=== PATIENT | male | born 1970 | race African-American/Black ===

== ENCOUNTER 2017-04-14 08:11 | Inpatient (IN) | payer MEDICAID ==
--- NOTE | ~2017-04-14 | EKG ---
PATIENT: THANH SAHU UNIT #: [id number] Ventricular Rate: 118 BPM Atrial Rate: 129 BPM QRS Duration: 86 ms Q-T Interval: 332 ms QTC Calculation(Bezet): 465 ms Calculated R [place]: 21 degrees Calculated T [place]: 76 degrees Diagnosis Line: Atrial fibrillation with rapid ventricular Diagnosis Line: response with premature ventricular or aberrantly Diagnosis Line: conducted complexes Diagnosis Line: Poor R wave progression questionable lead position Diagnosis Line: or body habitus Diagnosis Line: Nonspecific ST and T wave abnormality Diagnosis Line: Abnormal ECG Diagnosis Line: When compared with ECG of 14-APR-2017 09:40, Diagnosis Line: (unconfirmed) Diagnosis Line: Questionable change in initial forces of Lateral Diagnosis Line: leads Diagnosis Line: Nonspecific T wave abnormality, worse in Inferior Diagnosis Line: leads Diagnosis Line: Nonspecific T wave abnormality, worse in Lateral Diagnosis Line: leads Diagnosis Line: Confirmed by CIPRIANO ABRAHAM MD ([id number]) on Diagnosis Line: 04/17/2017 9:52:21 AM INTERPRETING WILBER LEE
--- NOTE | ~2017-04-14 | OR ---
Unit #: [id number] #: [id number] Patient: THANH SAHU [id number] [facility] [address] [place], [place] [address] [id number] MR#: [id number] NAME: THANH SAHU ROOM: [facility] Date of Procedure: 04/14/2017 Admission Date: 04/14/2017 Surgeon: Geremias Bueno M.D. : 1970 Attending Physician: Geremias Bueno M.D. Referring Physician: Geremias Bueno M.D. Primary Care Physician: Generic Doctor Not In System OPERATIVE REPORT PROCEDURE PERFORMED 1. Right and left heart catheterization with selective coronary arteriography and left ventriculography. 2. Right ipsilateral iliofemoral arteriogram followed by deployment of 6-Swedish Angio-Seal closure device. CLINICAL SUMMARY Mr. Sahu is a 46-year-old gentleman with a longstanding history of known severe cardiomyopathy with an ejection fraction in the 15% range. He has declined having defibrillator placement on multiple occasions, because he is waiting for "stem-cell research to provide him with new heart muscle." The patient recently developed extremely painful hemorrhoids requiring surgical intervention. I have the surgery and anesthesiology on hearing he had such a severe cardiomyopathy that has never been worked up, declined to operate on him until his heart had been more fully evaluated and he perhaps has had defibrillator placement. The patient been adequately asked and was agreeable to undergo a cardiac cath to evaluate his cardiac anatomy and physiology and got subsequent therapy. Risks, benefits, and alternatives of cardiac cath were discussed and the patient was agreeable to proceed. A time-out was performed. Conscious sedation was administered in the form of fentanyl, Versed, and diphenhydramine. The patient tolerated the procedure relatively well and there were no acute complications. DESCRIPTION OF PROCEDURE The right groin was prepped and draped in usual sterile fashion. 2% Xylocaine local anesthetic was administered and a 6-Swedish sheath placed in the right femoral artery and 5-Swedish sheath in the right femoral vein with Seldinger technique. An initial attempt was made to obtain right heart hemodynamics, with a 5-Swedish multipurpose catheter over a Wholey wire; however, it turned out the patient has a very enlarged right atrium and right ventricle and if proved impossible to manipulate this into the cavity. He was therefore exchanged for a 6-Swedish thermodilution Channelview-Patti catheter and still with a great deal of manipulation and a 0.025 guidewire of the catheter was eventually manipulated into the pulmonary artery. One thermodilution cardiac output was performed before all other thermodilution indicated time of contrast bolus was excessively long and output was not recorded. Unit #: [id number] #: [id number] Patient: THANH SAHU Venkatesh cardiac outputs were inaccurate, oxygen saturation samples were obtained from right atrium, pulmonary artery, AO and pulmonary capillary wedge position, but readings from the lab despite repeating made no sense at all. HEMODYNAMIC DATA Right heart hemodynamics: Right atrial mean 25 to 28 mmHg. Pulmonary artery 50/38 mmHg. Pulmonary artery mean 42 mmHg. Pulmonary capillary wedge pressure mean 33 mmHg. Single thermodilution cardiac output 3.1 L/minute with cardiac index 1.2 L/minute/m2. Left heart hemodynamics: LV 110/25 to 30 mmHg. AO 108/87 mmHg with a mean of 97 mmHg. CORONARY ARTERIOGRAPHY Left main: The left main arose from the left sinus of Valsalva. There was a large caliber vessel that bifurcated into the left anterior descending and left circumflex. The left main was entirely within normal limits. Left anterior descending: The LAD with a large caliber vessel that coursed completely around the tip of the apex. It gave off several small and moderate size diagonal branches. The entire LAD system was completely within normal limits. Left circumflex: The left circumflex was a large, dominant vessel. The entire circumflex system was completely within normal limits. Right coronary artery: The RCA was a nondominant vessel that had an aberrant origin from the anterior portion of the right sinus of Valsalva (cannulated with a AL1 catheter). The entire RCA system was within normal limits. LEFT VENTRICULOGRAPHY Left ventriculography demonstrated severe LV cavity dilatation with markedly severe global LV hypokinesis. The overall estimated ejection fraction was 10% to 15%. There was no gradient across the aortic valve on pullback. CONCLUSIONS 1. Markedly severe nonischemic, dilated cardiomyopathy with left ventricular ejection fraction 10% to 15%. 2. Moderate pulmonary hypertension. 3. Significantly reduced cardiac index. 4. Completely normal coronary arteries. RECOMMENDATIONS The patient will be admitted to the hospital, where he has already been started on a dobutamine infusion in the laborer stores of 5 mcg/kg/minute at the conclusion of the procedure. He will also be aggressively diuresed with Bumex drip, initially 2 mg/hour for the first 6 hours and then 1 mg/hour. We will continue with spironolactone 50 mg a day and potassium supplements as needed. The patient will also be continued on his Entresto 49/51 mg p.o. b.i.d. His carvedilol will be restarted once he is off the dobutamine infusion. We will carefully follow I's and O's. Results have been discussed with the patient and his daughter in the laborer stores. Once he Unit #: [id number] #: [id number] Patient: THANH SAHU is more medically optimize for his acute on chronic systolic and diastolic CHF, we will discuss transfer to [facility] for automatic implantable cardioverter-defibrillator placement. Dictated by... Geremias Bueno M.D. CP/saol TD: 04/15/2017 05:38 JOB #: [id number] OPERATIVE REPORT Page 1 of 1 X Geremias Bueno MD X PROCEDURE OPERATIVE NOTE
--- NOTE | ~2017-04-14 | EKG ---
PATIENT: THANH SAHU UNIT #: [id number] Ventricular Rate: 120 BPM Atrial Rate: 120 BPM P-R Interval: 198 ms QRS Duration: 82 ms Q-T Interval: 322 ms QTC Calculation(Bezet): 455 ms P [place]: 64 degrees Calculated R [place]: 15 degrees Calculated T [place]: 57 degrees Diagnosis Line: Atrial fibrillation with Premature ventricular Diagnosis Line: complexes and Fusion complexes Diagnosis Line: Poor R wave progression questionable lead position Diagnosis Line: or body habitus Diagnosis Line: Abnormal ECG Diagnosis Line: No previous ECGs available Diagnosis Line: Confirmed by CIPRIANO ABRAHAM MD ([id number]) on Diagnosis Line: 04/17/2017 9:47:55 AM INTERPRETING MD: ROSA
[~2017-04-14 08:11] MED LIST: COREG; ENTRESTO 24 MG1 EACH; LASIX; LIDOCREAM5 GM TOP
[2017-04-14 09:01] LABS: INR 1.1; PARTIAL THROMBOPLASTIN TIME 25.3 SECONDS (23.5-31.3); PROTHROMBIN TIME (PATIENT) 11.9 SECONDS (9.6-11.5)
[2017-04-14 09:03] LABS: BUN/CREATININE RATIO 15.83; CALCIUM SERUM 9.1 mg/dL (8.4-10.2); CREATININE SERUM 1.2 mg/dL (0.6-1.4); GLOM FILT RATE Estimated 84.8 mL/min (>60)
[2017-04-14 09:14] LABS: HEMOGLOBIN 15.7 gm/dL (13.0-16.0); MEAN CORPUSCULAR HEMOGLOBIN 30.2 PG (28-34); MEAN CORPUSCULAR HGB CONC 32.1 g/dL (30-36); MEAN PLATELET VOLUME 10.3 FL (6.5-11.5); RED BLOOD COUNT 5.21 X10e (3.90-5.60); RED CELL DISTRIBUTION WIDTH 15.1 % (11.0-15.5); WHITE BLOOD COUNT 7.3 X10e3 (4.0-10.5)
[2017-04-14] MEDS ORDERED: DIGOX125 MCG PO (09:25)
[2017-04-14] MEDS ORDERED: ZYLOPRIM100 MG DOB (09:25)
[2017-04-14] MEDS ORDERED: COREG12.5 MG PO (09:25)
[2017-04-14] MEDS ORDERED: COLACE PO (09:26)
[2017-04-14] MEDS ORDERED: LASIX PO (09:26)
[2017-04-14] MEDS ORDERED: UNISOM25 M2 PO (09:26)
[2017-04-14] MEDS ORDERED: INDOMETHACIN50 MG PO (09:27)
[2017-04-14] MEDS ORDERED: LISINOPRIL20 MG PO (09:27)
[2017-04-14] MEDS ORDERED: COUMADIN7.5 MG PO (09:27)
[2017-04-14] MEDS ORDERED: ALDACTONE25 MG PO (09:28)
[2017-04-14] MEDS ORDERED: SIMVASTATIN40 MG PO (09:28)
[2017-04-14] MEDS ORDERED: PERCOCET10 PO (09:28)
[2017-04-14] MEDS ORDERED: POTASSIUM CHLO20 ME1 PO (09:28)
[2017-04-14] MEDS ORDERED: LOVENOX (09:29)
[2017-04-14] MEDS ORDERED: ENTRESTO 24 MG1 EACH PO (09:32)
[2017-04-15 01:36] LABS: BUN/CREATININE RATIO 13.84; CALCIUM SERUM 9.1 mg/dL (8.4-10.2); CREATININE SERUM 1.3 mg/dL (0.6-1.4); GLOM FILT RATE Estimated 76.9 mL/min (>60); POTASSIUM 3.8 mmol/L (3.5-5.1)
[2017-04-15 05:15] LABS: BASOPHIL% 0.2 % (0-2.5); EOSINOPHIL# 0.1 X10e3 (0-0.7); EOSINOPHIL% 0.9 % (0.0-7.0); HEMATOCRIT 48.8 % (38.0-50.0); LYMPHOCYTE# 2.6 X10e3 (1.0-3.5); LYMPHOCYTE% 35.8 % (17.0-45.0); MEAN CELL VOLUME 92.7 FL (83-96); MEAN CORPUSCULAR HEMOGLOBIN 30.3 PG (28-34); MEAN CORPUSCULAR HGB CONC 32.7 g/dL (30-36); MEAN PLATELET VOLUME 10.2 FL (6.5-11.5); MONOCYTE# 0.8 X10e3 (0-1.0); MONOCYTE% 11.8 % (3.0-12.0); NEUTROPHIL# 3.6 X10e3 (1.5-7.1); NEUTROPHIL% 51.3 % (40-75); PLATELET COUNT 174 X10e3 (140-420); RED BLOOD COUNT 5.26 X10e (3.90-5.60); RED CELL DISTRIBUTION WIDTH 15.1 % (11.0-15.5); WHITE BLOOD COUNT 7.1 X10e3 (4.0-10.5)
[2017-04-15 05:16] LABS: INR 1.1; PARTIAL THROMBOPLASTIN TIME 23.6 SECONDS (23.5-31.3); PROTHROMBIN TIME (PATIENT) 11.5 SECONDS (9.6-11.5)
[2017-04-15 05:29] LABS: DIFF IND NO
[2017-04-15 07:14] LABS: BUN/CREATININE RATIO 14.61; CREATININE SERUM 1.3 mg/dL (0.6-1.4); GLOM FILT RATE Estimated 76.9 mL/min (>60); POTASSIUM 4.4 mmol/L (3.5-5.1); PROTEIN TOTAL SERUM 6.5 g/dL (6.0-8.3)
== END 2017-04-15 07:20 | DRG 287 ==
LOC: CCVL 08:11 → CEDOF 11:22 → CICCU2 12:58 → CCVL 12:58 → CEDOF 12:58 → CICCU2 12:59 → CEDOF 12:59 → CICCU2 04-15 07:20
PROVIDERS: Internal Medicine Cardiovascular Disease
PROC: 4A023N8 Measurement of Cardiac Sampling and Pressure, Bilateral, Percutaneous Approach (ICD-10-PCS; principal; 2017-04-14)
PROC: B2151ZZ Fluoroscopy of Left Heart using Low Osmolar Contrast (ICD-10-PCS; 2017-04-14)
PROC: B2111ZZ Fluoroscopy of Multiple Coronary Arteries using Low Osmolar Contrast (ICD-10-PCS; 2017-04-14)
DX: I11.0 Hypertensive heart disease with heart failure (principal); I82.409 Acute embolism and thrombosis of unspecified deep veins of unspecified lower extremity; I42.0 Dilated cardiomyopathy; I50.42 Chronic combined systolic (congestive) and diastolic (congestive) heart failure; E78.5 Hyperlipidemia, unspecified; I48.91 Unspecified atrial fibrillation; Z79.01 Long term (current) use of anticoagulants; Z86.711 Personal history of pulmonary embolism; Z88.8 Allergy status to other drugs, medicaments and biological substances
CPT/HCPCS: 36415; 80048; 80053; 80061; 82810; 83735; 84132; 85025; 85027; 85610; 85730; 93005; C1760; C1769; C1887; C1894; J1170; J1200; J1250; J1650; J2250; J3010; J3360; J3490